=== PATIENT | male | born 1995 | race Caucasian/White ===

== ENCOUNTER 2022-11-20 17:00 | Outpatient (CLI) | payer BC | END 2022-11-20 17:01 | disposition home or self-care (01) | LOC: SLEEPLAB 17:00 | PROVIDERS: ATTEND Family Medicine | DX: G47.10 Hypersomnia, unspecified (principal); R53.83 Other fatigue; R40.0 Somnolence; R06.81 Apnea, not elsewhere classified | CPT/HCPCS: 95800 ==

== ENCOUNTER 2024-10-11 16:44 | Emergency (ER) | payer BC, OTHER ==
[2024-10-11 17:01] LABS: #Basophils 0.07 10x3/uL (0.0-0.2); #Eosinophils 0.11 10x3/uL (0.0-0.7); #Monocytes 0.77 10x3/uL (0.11-0.59); #Neutrophils 5.54 10x3/uL (1.40-6.50); %Basophils 0.7 % (0.0-1.0); %Eosinophils 1.1 % (0.0-10.0); %Lymphocytes 35.0 % (21.0-51.0); %Monocytes 7.7 % (0.0-10.0); %Neutrophils 55.2 % (42.0-75.0); Hematocrit 45.5 % (42.0-52.0); Hemoglobin 15.2 g/dL (14.0-18.0); Mean Corpuscular Hemoglobin 29.6 pg (27.0-31.0); Mean Corpuscular Volume 88.7 fL (78.0-98.0); Platelet Count 345 10x3/uL (130-400); Red Blood Cell (RBC) Count 5.13 mill/uL (4.70-6.10); White Blood Cell (WBC) Count 10.03 10x3/uL (4.8-10.8)
[2024-10-11] MEDS ORDERED: Ondansetron PF 4 MG/2 ML Vial ONE (17:01)
[2024-10-11] MEDS ORDERED: Boostrix 0.5 ML (Tdap) VIAL (>/=7 yrs of age) ONE (17:02)
[2024-10-11] MEDS ORDERED: CEFAZOLIN 2 GM VIAL ONE (17:02)
[2024-10-11 17:17] LABS: ALT (SGPT) 20 U/L (Less than 45); AST (SGOT) 23 U/L (11-34); Albumin 5.0 g/dL (3.1-4.5); Alkaline Phosphatase 66 U/L (40-110); Anion Gap 16 mmol/L (10-20); BUN (Urea Nitrogen) 12 mg/dL (8.9-20.6); Bilirubin, Total 0.5 mg/dL (0.3-1.2); Calc. Creatinine Clearance 0 mL/min (70-130); Calcium 9.8 mg/dL (7.8-10.44); Carbon Dioxide 23 mmol/L (22-29); Chloride 107 mmol/L (98-107); Globulin 3.6 g/dL (2.4-3.5); Glucose 110 mg/dL (70-105); Potassium 3.4 mmol/L (3.5-5.1); Sodium 143 mmol/L (136-145)
[2024-10-11] MEDS ORDERED: Lidocaine 1% w/Epinephrine 1:100K 20 ML VIAL ONE (17:19)
== END 2024-10-11 19:00 | disposition home or self-care (01) ==
LOC: ERS 16:44
DX: S51.812A Laceration without foreign body of left forearm, initial encounter (principal); F17.220 Nicotine dependence, chewing tobacco, uncomplicated; W26.8XXA Contact with other sharp object(s), not elsewhere classified, initial encounter; Y99.0 Civilian activity done for income or pay
CPT/HCPCS: 12015; 80053; 85025; 90471; 90715; 96374; 96375; J2270; J2405

== ENCOUNTER 2024-10-22 14:52 | Emergency (ER) | payer BC ==
[2024-10-22] MEDS ORDERED: Bacitracin 1 PK ONE ×2 (15:30→15:33)
== END 2024-10-22 15:40 | disposition home or self-care (01) ==
LOC: ERS 14:52
DX: S51.812D Laceration without foreign body of left forearm, subsequent encounter (principal); F17.220 Nicotine dependence, chewing tobacco, uncomplicated